=== PATIENT | male | born 1945 | race Caucasian/White ===

== ENCOUNTER 2018-12-26 12:53 | Outpatient (CLI) | payer MEDICARE ==
--- NOTE | 2018-12-26 13:37 | XRAY Report ---
Reason: LEFT KNEE INJURY Procedure Date: 12/26/2018 Accession Number: [id number] / [id number] Procedure: XR - Knee 3 View LT CPT Code: FULL RESULT: EXAM: LEFT KNEE RADIOGRAPHY EXAM DATE: 12/26/2018 01:14 PM. CLINICAL HISTORY: Left knee injury. Jump from 7 foot bridge with knee pain when extended. COMPARISON: None. TECHNIQUE: 3 views. FINDINGS: Bones: Normal. No fractures or bone lesions. Joints: Mild tricompartmental osteoarthrosis without joint effusion or subluxation. Soft Tissues: Normal. No soft tissue swelling. IMPRESSION: No acute fracture or dislocation is identified. RADIA
== END 2018-12-26 12:54 | disposition home or self-care (01) ==
LOC: DI 12:53
PROVIDERS: ATTEND Internal Medicine
DX: S89.92XA Unspecified injury of left lower leg, initial encounter (principal)

== ENCOUNTER 2020-03-17 08:19 | Outpatient (CLI) | payer MEDICARE, OTHER ==
[2020-03-17 08:52] LABS: ALBUMIN 4.4 g/dL (3.2-5.5); ALBUMIN/GLOBULIN RATIO 1.5 (1.0-2.2); ALKALINE PHOSPHATASE 56 IU/L (42-121); ALT ALANINE AMINOTRANSFERASE 29 IU/L (10-60); AST ASPARTATE AMINOTRANSFERASE 28 IU/L (10-42); BILIRUBIN,TOTAL 1.2 mg/dL (0.2-1.0); BUN - BLOOD UREA NITROGEN 18 mg/dL (6-20); CALCIUM 9.7 mg/dL (8.5-10.3); CARBON DIOXIDE - CO2 29 mmol/L (21-32); CHLORIDE 95 mmol/L (101-111); CHOL/HDL RATIO 2.5 (<5.0); CHOLESTEROL 131 mg/dL; CREATININE 0.9 mg/dL (0.6-1.2); GLUCOSE 135 mg/dL (70-100); HDL CHOLESTEROL 52 mg/dL; LDL CHOLESTEROL,CALCULATED 68 mg/dL; LDL/HDL RATIO 1.3 (<3.6); SODIUM 135 mmol/L (135-145); TOTAL PROTEIN 7.4 g/dL (6.7-8.2); VLDL CHOLESTEROL 11 mg/dL
== END 2020-03-17 08:20 | disposition home or self-care (01) ==
LOC: LAB 08:19
PROVIDERS: ATTEND Internal Medicine
DX: I10 Essential (primary) hypertension (principal); E78.5 Hyperlipidemia, unspecified; Z12.5 Encounter for screening for malignant neoplasm of prostate
CPT/HCPCS: 36415; 80053; 80061; G0103; 83721; 84153

== ENCOUNTER 2022-03-11 09:12 | Outpatient (CLI) | payer MEDICARE, OTHER ==
--- NOTE | 2022-03-11 11:21 | XRAY Report ---
PROCEDURE: Chest 2 View X-Ray INDICATIONS: DYSPNEA, SOB,PSVT TECHNIQUE: 2 views of the chest were obtained. COMPARISON: None. FINDINGS: Heart is mildly enlarged. No effusions, consolidations or pneumothorax. Osseous and soft tissue struc tures are unremarkable. IMPRESSION: No acute pulmonary process. Reviewed by: Alannah Mares MD on 03/11/2022 11:19 AM PDT Approved by: Alannah Mares MD on 03/11/2022 11:19 AM PDT Station ID: [id number]
== END 2022-03-11 09:13 | disposition home or self-care (01) ==
LOC: DI 09:12
PROVIDERS: ATTEND Internal Medicine Cardiovascular Disease
DX: R06.09 Other forms of dyspnea (principal); I47.1 Supraventricular tachycardia; R06.02 Shortness of breath

== ENCOUNTER 2022-05-14 10:35 | Outpatient (CLI) | payer MEDICARE, OTHER ==
[2022-05-14 11:14] LABS: ALBUMIN 4.5 g/dL (3.2-5.5); ALBUMIN/GLOBULIN RATIO 1.5 (1.0-2.2); ALKALINE PHOSPHATASE 55 IU/L (42-121); ALT ALANINE AMINOTRANSFERASE 21 IU/L (10-60); AST ASPARTATE AMINOTRANSFERASE 23 IU/L (10-42); BILIRUBIN,TOTAL 1.2 mg/dL (0.2-1.0); BUN - BLOOD UREA NITROGEN 35 mg/dL (6-20); CALCIUM 9.4 mg/dL (8.5-10.3); CARBON DIOXIDE - CO2 28 mmol/L (21-32); CHLORIDE 103 mmol/L (101-111); CHOL/HDL RATIO 3.8 (<5.0); CHOLESTEROL 132 mg/dL; CREATININE 1.1 mg/dL (0.6-1.2); GFR - MDRD 65 (>89); GLUCOSE 112 mg/dL (70-100); HDL CHOLESTEROL 35 mg/dL; LDL CHOLESTEROL,CALCULATED 78 mg/dL; LDL/HDL RATIO 2.2 (<3.6); POTASSIUM 3.9 mmol/L (3.5-5.0); SODIUM 138 mmol/L (135-145); TOTAL PROTEIN 7.5 g/dL (6.7-8.2); TRIGLYCERIDES 95 mg/dL; VLDL CHOLESTEROL 19 mg/dL
[2022-05-14 11:40] LABS: PSA FREE 0.37 ng/mL (0.16-2.81)
[2022-05-14 11:41] LABS: PSA TOTAL 1.93 ng/mL (0.000-2.000)
[2022-05-14 11:53] LABS: ESTIMATED AVERAGE GLUCOSE 128 mg/dL (70-100); HEMOGLOBIN A1c% 6.1 % (4.27-6.07)
== END 2022-05-14 10:36 | disposition home or self-care (01) ==
LOC: LAB 10:35
PROVIDERS: ATTEND Internal Medicine
DX: I10 Essential (primary) hypertension (principal); R73.01 Impaired fasting glucose; E78.5 Hyperlipidemia, unspecified; N40.0 Benign prostatic hyperplasia without lower urinary tract symptoms
CPT/HCPCS: 36415; 80053; 80061; 83036; 83721; 84153; 84154

== ENCOUNTER 2022-08-06 08:23 | Outpatient (CLI) | payer MEDICARE, OTHER ==
[2022-08-06 08:40] LABS: BASOPHILS # (AUTO) 0.1 10^3/uL (0.0-0.1); BASOPHILS % (AUTO) 0.7 %; EOSINOPHILS # (AUTO) 0.2 10^3/uL (0.0-0.7); EOSINOPHILS % (AUTO) 3.1 %; HCT - HEMATOCRIT 38.4 % (42.0-52.0); LYMPHOCYTES # (AUTO) 1.6 10^3/uL (1.5-3.5); LYMPHOCYTES % (AUTO) 21.1 %; MEAN CORPUSCULAR HGB CONC 33.9 g/dL (32.0-36.0); MEAN CORPUSCULAR VOLUME 94.6 fL (80.0-94.0); MEAN PLATELET VOLUME 8.4 fL (7.4-11.4); MONOCYTES # (AUTO) 0.8 10^3/uL (0.0-1.0); MONOCYTES % (AUTO) 10.6 %; NEUTROPHILS # (AUTO) 4.8 10^3/uL (1.5-6.6); NEUTROPHILS % (AUTO) 63.7 %; PLT - PLATELET COUNT 246 10^3/uL (130-450); RED BLOOD COUNT 4.06 10^6/uL (4.70-6.10); RED CELL DISTRIBUTION WIDTH 12.4 % (12.0-15.0); WHITE BLOOD COUNT 7.5 x10^3/uL (4.8-10.8)
[2022-08-06 08:51] LABS: BILIRUBIN,URINE NEGATIVE (NEGATIVE); GLUCOSE, URINE (UA) NEGATIVE (NEGATIVE); KETONES,URINE (UA) NEGATIVE (NEGATIVE); LEUKOCYTE ESTERASE, URINE NEGATIVE (NEGATIVE); NITRITE,URINE NEGATIVE (NEGATIVE); OCCULT BLOOD,URINE NEGATIVE (NEGATIVE); PROTEIN,URINE NEGATIVE (NEGATIVE); UROBILINOGEN,URINE 0.2 (NORMAL) E.U./dL (NORMAL)
[2022-08-06 08:52] LABS: CLARITY,URINE CLEAR (CLEAR)
[2022-08-06 08:59] LABS: ALBUMIN 4.3 g/dL (3.2-5.5); ALBUMIN/GLOBULIN RATIO 1.4 (1.0-2.2); ALKALINE PHOSPHATASE 62 IU/L (42-121); ALT ALANINE AMINOTRANSFERASE 24 IU/L (10-60); AST ASPARTATE AMINOTRANSFERASE 20 IU/L (10-42); BILIRUBIN,TOTAL 1.3 mg/dL (0.2-1.0); BUN - BLOOD UREA NITROGEN 39 mg/dL (6-20); CALCIUM 9.5 mg/dL (8.5-10.3); CARBON DIOXIDE - CO2 28 mmol/L (21-32); CHLORIDE 99 mmol/L (101-111); CHOL/HDL RATIO 4.1 (<5.0); CHOLESTEROL 124 mg/dL; CREATININE 1.3 mg/dL (0.6-1.2); GFR - MDRD 53 (>89); GLUCOSE 123 mg/dL (70-100); HDL CHOLESTEROL 30 mg/dL; LDL CHOLESTEROL,CALCULATED 77 mg/dL; LDL/HDL RATIO 2.6 (<3.6); POTASSIUM 3.6 mmol/L (3.5-5.0); SODIUM 135 mmol/L (135-145); TOTAL PROTEIN 7.3 g/dL (6.7-8.2); TRIGLYCERIDES 85 mg/dL; VLDL CHOLESTEROL 17 mg/dL
[2022-08-06 09:01] LABS: MICROALBUM/CREATININE RATIO,UR 5.3 ug/mg (<30.0); MICROALBUMIN,URINE 0.6 mg/dL (0-300.0)
[2022-08-06 09:11] LABS: THYROID STIMULATING HORMONE 2.74 uIU/mL (0.34-5.60)
[2022-08-06 09:13] LABS: FREE T4 (FREE THYROXINE) 1.03 ng/dL (0.58-1.64)
== END 2022-08-06 08:24 | disposition home or self-care (01) ==
LOC: LAB 08:23
PROVIDERS: ATTEND Physician Assistant Medical
DX: I10 Essential (primary) hypertension (principal); E78.5 Hyperlipidemia, unspecified
CPT/HCPCS: 36415; 80053; 80061; 81001; 81003; 81599; 82043; 82384; 82570; 83721; 83835; 84439; 84443; 85025; 87086

== ENCOUNTER 2022-08-10 08:12 | Outpatient (CLI) | payer MEDICARE, OTHER ==
[2022-08-10] MEDS ORDERED: iohexoL-300 100 ML VIAL ONE ×2 (08:19→08:25)
--- NOTE | 2022-08-10 09:28 | CT Report ---
PROCEDURE: ANGIO ABDOMEN W/WO INDICATIONS: REFRACTORY HTN TECHNIQUE: Noncontrast CT of the abdomen is performed, followed by intravenous contrast-enhanced brown rial phase and delayed venous phase images of the abdomen. COMPARISON: None. FINDINGS: Calcified granuloma within the left posterior lung base. Heart size is within normal limits. There is moderate diffuse plaque causing mild diffuse stenosis of the abdominal aorta. No evidence of dissection, nor aneurysm. Single bilateral renal arteries are present. There is a moderate calcific origin stenosis of the left renal artery origin. There is a high-grade calcific origin stenosis of th e right renal artery origin. High-grade calcific origin stenosis of the celiac artery. Superior mesen teric artery is patent. Inferior mesenteric artery demonstrates a mild calcific origin stenosis. Liver, biliary tree, gallbladder, pancreas, spleen, adrenals, and kidneys are within normal limits. Visualized bowel loops and mesentery are grossly unremarkable. No adenopathy. IVC and portal venous vasculature are grossly patent. Grade 1 anterolisthesis of L4 on L5. Bilateral L4-L5 pars intraarticularis defects. Severe discogenic osteosclerosis within the inferior L4 and superior L5 endplates. IMPRESSION: 1. Bilateral renal artery stenoses as described above. 2. Mesenteric arterial stenoses as described above. 3. 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 Reviewed by: Radha Sarabia MD on 08/10/2022 9:27 AM PDT Approved by: Radha Sarabia MD on 08/10/2022 9:27 AM PDT Station ID: [id number]
[2022-08-10] MEDS ORDERED: iohexoL-300 100 ML VIAL IVP ONE (14:07)
== END 2022-08-10 08:13 | disposition home or self-care (01) ==
LOC: DI 08:12
PROVIDERS: ATTEND Physician Assistant Medical
DX: I10 Essential (primary) hypertension (principal); I70.1 Atherosclerosis of renal artery; K55.1 Chronic vascular disorders of intestine; M47.896 Other spondylosis, lumbar region
CPT/HCPCS: 74175; Q9967

== ENCOUNTER 2022-09-01 16:08 | Outpatient (CLI) | payer MEDICARE, OTHER ==
[2022-09-01 16:31] LABS: CALCIUM 9.6 mg/dL (8.5-10.3); CREATININE 1.4 mg/dL (0.6-1.2); POTASSIUM 3.5 mmol/L (3.5-5.0)
== END 2022-09-01 16:09 | disposition home or self-care (01) ==
LOC: LAB 16:08
PROVIDERS: ATTEND Internal Medicine Cardiovascular Disease
DX: I10 Essential (primary) hypertension (principal)
CPT/HCPCS: 36415; 80048

== ENCOUNTER 2022-10-26 08:17 | Outpatient (CLI) | payer MEDICARE, OTHER ==
[2022-10-26 08:54] LABS: ALBUMIN 4.1 g/dL (3.2-5.5); CALCIUM 9.4 mg/dL (8.5-10.3); PHOSPHORUS 3.7 mg/dL (2.5-4.6); POTASSIUM 3.8 mmol/L (3.5-5.0)
[2022-10-26 09:12] LABS: CREATININE,URINE 97.7 mg/dL; PROTEIN/CREATININE RATIO,URINE 0.1 (<=0.2)
== END 2022-10-26 08:18 | disposition home or self-care (01) ==
LOC: LAB 08:17
PROVIDERS: ATTEND Internal Medicine Nephrology
DX: N18.2 Chronic kidney disease, stage 2 (mild) (principal); I15.0 Renovascular hypertension
CPT/HCPCS: 36415; 80069; 82570; 84156

== ENCOUNTER 2022-11-22 08:04 | Outpatient (CLI) | payer MEDICARE, OTHER ==
[2022-11-22 08:32] LABS: CREATININE,URINE 128.1 mg/dL; PROTEIN/CREATININE RATIO,URINE 0.1 (<=0.2)
[2022-11-22 08:33] LABS: ALBUMIN 4.1 g/dL (3.2-5.5); CALCIUM 9.5 mg/dL (8.5-10.3); CREATININE 2.1 mg/dL (0.6-1.2); PHOSPHORUS 4.1 mg/dL (2.5-4.6); POTASSIUM 3.4 mmol/L (3.5-5.0)
== END 2022-11-22 08:05 | disposition home or self-care (01) ==
LOC: LAB 08:04
PROVIDERS: ATTEND Internal Medicine Nephrology
DX: I15.0 Renovascular hypertension (principal); N18.2 Chronic kidney disease, stage 2 (mild)
CPT/HCPCS: 36415; 80069; 82570; 84156

== ENCOUNTER 2022-12-01 09:42 | Outpatient (CLI) | payer MEDICARE, OTHER ==
[2022-12-01 10:12] LABS: CREATININE,URINE 116.1 mg/dL; PROTEIN/CREATININE RATIO,URINE 0.1 (<=0.2)
[2022-12-01 10:32] LABS: ALBUMIN 3.8 g/dL (3.2-5.5); PHOSPHORUS 2.4 mg/dL (2.5-4.6); POTASSIUM 3.7 mmol/L (3.5-5.0)
== END 2022-12-01 09:43 | disposition home or self-care (01) ==
LOC: LAB 09:42
PROVIDERS: ATTEND Internal Medicine Nephrology
DX: N18.2 Chronic kidney disease, stage 2 (mild) (principal); I15.0 Renovascular hypertension
CPT/HCPCS: 36415; 80069; 82570; 84156

== ENCOUNTER 2022-12-27 07:54 | Outpatient (CLI) | payer MEDICARE, OTHER ==
[2022-12-27 08:17] LABS: BILIRUBIN,URINE NEGATIVE (NEGATIVE); GLUCOSE, URINE (UA) NEGATIVE (NEGATIVE); KETONES,URINE (UA) NEGATIVE (NEGATIVE); LEUKOCYTE ESTERASE, URINE NEGATIVE (NEGATIVE); NITRITE,URINE NEGATIVE (NEGATIVE); OCCULT BLOOD,URINE NEGATIVE (NEGATIVE); PH,URINE 6.5 PH (5.0-7.5); PROTEIN,URINE NEGATIVE (NEGATIVE); UROBILINOGEN,URINE 0.2 (NORMAL) E.U./dL (NORMAL)
[2022-12-27 08:25] LABS: ALBUMIN 4.2 g/dL (3.2-5.5); CALCIUM 9.6 mg/dL (8.5-10.3); PHOSPHORUS 2.5 mg/dL (3.7-7.2); POTASSIUM 3.9 mmol/L (3.5-4.5)
[2022-12-27 08:27] LABS: CLARITY,URINE CLEAR (CLEAR); CREATININE,URINE 124.4 mg/dL; PROTEIN/CREATININE RATIO,URINE 0.1 (<=0.2)
[2022-12-27 08:28] LABS: BACTERIA,URINE None Seen /HPF (None Seen); RBC,URINE None Seen /HPF (0-5); SQUAMOUS EPITHELIAL CELL,UR NONE SEEN (<= Few); WBC,URINE 0-3 /HPF (0-3)
== END 2022-12-27 07:55 | disposition home or self-care (01) ==
LOC: LAB 07:54
PROVIDERS: ATTEND Internal Medicine Nephrology
DX: N17.9 Acute kidney failure, unspecified (principal)
CPT/HCPCS: 36415; 80069; 81001; 82570; 84156; 87086

== ENCOUNTER 2023-01-13 21:37 | Emergency (ER) | payer MEDICARE, OTHER ==
--- OUTSIDE RECORDS SUMMARY | 2023-01-13 22:02 | EXTERNAL MEDICAL SUMMARY RPT | Continuity of Care Document ---
Author Name Unknown Address [address] [place] [address] Phone Organization [facility] Address [address] [place] [address] Phone Care Team Providers Care Globe Changer Name Role Phone Unavailable Unavailable Unavailable Rex Campa Pa-[facility] Unavailable Unavailable Medications date description facility 2023-01-12 00:00 hydralazine All 2023-01-13 00:00 hydralazine All 2023-01-12 00:00 aspirin All 2023-01-13 00:00 aspirin All 2023-01-12 00:00 aspirin All 2023-01-13 00:00 aspirin All 2023-01-12 00:00 hydralazine All 2023-01-13 00:00 hydralazine All 2023-01-12 00:00 atorvastatin All 2023-01-13 00:00 atorvastatin All 2023-01-12 00:00 atorvastatin All 2023-01-13 00:00 atorvastatin All 2023-01-12 00:00 hydralazine All 2023-01-13 00:00 hydralazine All 2023-01-12 00:00 atorvastatin All 2023-01-13 00:00 atorvastatin All 2023-01-12 00:00 atorvastatin All 2023-01-13 00:00 atorvastatin All 2023-01-12 00:00 aspirin All 2023-01-13 00:00 aspirin All 2023-01-12 00:00 hydralazine All 2023-01-13 00:00 hydralazine All Problems date description facility 2023-01-12 00:00 Unspecified essential hypertens ion All 2023-01-12 00:00 Essential hypertension All 2023-01-12 00:00 Essential (primary) hypertensio n All Procedures date description facility 2023-01-12 00:00 Visit Code Hold All Social History date description facility 2023-01-12 00:00 Unknown if ever smoked All 2023-01-13 00:00 Unknown if ever smoked All Vital Signs date measurement value units 2023-01-12 00:00 BMI 26.03 kg/m2 2023-01-12 00:00 BP_diastolic 77 mmHg 2023-01-12 00:00 BP_systolic 152 mmHg 2023-01-12 00:00 heart_rate 95 /min 2023-01-12 00:00 height_metric 187.96 cm 2023-01-12 00:00 height_standard 74 in 2023-01-12 00:00 respiration_rate 16 /min 2023-01-12 00:00 temperature_metric 37.17 C 2023-01-12 00:00 temperature_standard 98.9 F 2023-01-12 00:00 weight_metric 91.63 kg 2023-01-12 00:00 weight_standard 202 lb
--- NOTE | 2023-01-13 22:04 | ED Physician Documentation ---
PD HPI CHEST PAIN - Stated complaint Stated Complaint: TIGHT CHEST - Chief complaint Chief Complaint: Cardiac - History obtained from History obtained from: Patient - Additional information Additional information: 77yM with pmh cad, stent September 07, 2022 p/w chest tightness earlier today and new chest pain now with associated dizziness. stopped plavix september 07. denies soa, fever, nausea. Review of Systems Constitutional: denies: Fever, Chills Cardiac: reports: Palpitations. denies: Chest pain / pressure Respiratory: denies: Dyspnea, Cough Neurologic: reports: Other (dizziness) PD PAST MEDICAL HISTORY - Past Medical History Cardiovascular: Hypertension, High cholesterol Respiratory: None, Tuberculosis Neuro: None Endocrine/Autoimmune: None GI: Other : Other HEENT: None Psych: None Musculoskeletal: None Other Past Medical History: renal stent. hernia repair - Past Surgical History Past Surgical History: Yes General: Hiatal hernia repair HEENT: Cataracts - Present Medications Home Medications: Ambulatory Orders Medication Instructions Recorded Confirmed Zolpidem [Ambien] 5 mg PO HS 01/13/23 amLODIPine [Norvasc] 10 mg PO DAILY 01/13/23 hydrALAZINE [Apresoline] 25 mg PO TID 01/13/23 01/13/23 - Allergies Allergies/Adverse Reactions: Allergies Allergy/AdvReac Type Severity Reaction Status Date / Time No Known Drug Allergies Allergy Verified 01/13/23 21:51 - Social History Does the pt smoke?: No Smoking Status: Never smoker Does the pt drink ETOH?: Yes Does the pt have substance abuse?: No - Immunizations Immunizations are current?: Yes PD ED PE NORMAL - Vitals Vital signs reviewed: Yes - General General: Alert and oriented X 3, No acute distress, Well developed/nourished - HEENT HEENT: Atraumatic, PERRL, EOMI, Moist mucous membranes, Pharynx benign - Neck Neck: Supple, no meningeal sign - Cardiac Cardiac: Other (irregular rate, mildly tachycardic rhythm) - Respiratory Respiratory: No respiratory distress, Clear bilaterally - Abdomen Abdomen: Non tender, Non distended - Derm Derm: Normal color, Warm and dry - Extremities Extremities: No deformity, No edema - Neuro Neuro: No motor deficit, No sensory deficit - Psych Psych: Normal mood, Normal affect Results - Vitals Vitals: Vital Signs - 24 hr 01/13/23 01/13/2323 21:42 22:21 23:51 Temperature 36.8 C Heart Rate 117 H 96 94 Respiratory 18 24 17 Rate Blood Pressure 147/59 H 117/69 111/66 O2 Saturation 96 98 98 01/14/23 01/14/23 00:22 00:52 Temperature Heart Rate 100 104 H Respiratory 16 17 Rate Blood Pressure 130/66 118/60 O2 Saturation 97 95 Oxygen O2 Source Room air - EKG (time done) 2144 EKG releavant findings:: EKG personally interpreted by author of this note. Relevant findings are: Rate: Rate (enter#) (112) Rhythm: Atrial fibrillation 0151 EKG releavant findings:: EKG personally interpreted by author of this note. Relevant findings are: Rate: Rate (enter#) (82) Rhythm: NSR [place]: Normal Intervals: Prolonged PA (231), Other (QT/QTc 420/491) QRS: Normal Ischemia: Normal ST segments - Labs Labs: Laboratory Tests 01/13/23 01/13/23 22:11 22:11 WBC 7.4 RBC 4.13 L Hgb 13.3 L Hct 38.6 L MCV 93.5 MCH 32.2 H MCHC 34.5 RDW 13.1 Plt Count 229 MPV 9.1 Neut # (Auto) 4.8 Lymph # (Auto) 1.6 [place] # (Auto) 0.8 Eos # (Auto) 0.2 Baso # (Auto) 0.0 Absolute Nucleated RBC 0.00 Nucleated RBC % 0.0 Sodium 134 L Potassium 3.0 L Chloride 99 L Carbon Dioxide 23 Anion Gap 12.0 BUN 16 Creatinine 1.0 Estimated GFR (MDRD) 72 L Glucose 143 H Calcium 9.6 Magnesium 1.8 Total Bilirubin 1.1 H AST 26 ALT 20 Alkaline Phosphatase 61 Troponin I High Sens 5.0 Total Protein 7.5 Albumin 4.6 Globulin 2.9 Albumin/Globulin Ratio 1.6 Lipase 22 PD Medical Decision Making - ED course ED course: 77yM with pmh cad p/w new onset afib in the ED on EKG. 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 I offered procainamide medical cardioversion and patient declined. he then changed his mind and agreed to it and it was reordered. cbc, abdominal panel, troponin ordered and unremarkable aside from hypokalemia with K 3.0. repleted orally and IV potassium. also with mild hyponatremia. advised to f/u with pcp regarding this. Patient converted to NSR following 1g procainamide infusion. Plan to f/u outpatient cardiology. return precautions given. Departure - Departure Disposition: Home, Self Care Clinical Impression: Hypokalemia, New onset a-fib Condition: Stable Instructions: Atrial Fibrillation Dc, ED Potassium Deficiency Follow-Up: Domingo Valdez MD [Physician No Access] - Comments: You were seen in the emergency department for New onset atrial fibrillation, which resolved after procainamide infusion. You also had low potassium that improved after potassium supplement was given. You should talk with your primary care provider about starting potassium supplementation or transitioning to a different blood pressure medicine. In regards to the afib, this resolved after 1 gram of procainamide was infused over an hour. You are now back in a normal heart rhythm. Please follow-up with a watch crystal edge grinder and return to the emergency department if you have any new or worsening symptoms or other concerns. Forms: PCP List
--- NOTE | 2023-01-13 22:19 | XRAY Report ---
PROCEDURE: Chest 1 View X-Ray INDICATIONS: Chest Pain TECHNIQUE: One view of the chest was acquired. COMPARISON: None. FINDINGS: Surgical changes and devices: None. Lungs and pleura: No pleural effusions or pneumothorax. Lungs are clear. Mediastinum: Mediastinal contours appear normal. Heart size is normal. Bones and chest wall: No suspicious bony lesions. Overlying soft tissues appear unremarkable. IMPRESSION: No acute cardiopulmonary process. Reviewed by: Francisca Schultz MD on 01/13/2023 10:18 PM PDT Approved by: Francisca Schultz MD on 01/13/2023 10:18 PM PDT Station ID: [id number]
[2023-01-13 22:22] LABS: BASOPHILS % (AUTO) 0.3 %; EOSINOPHILS # (AUTO) 0.2 10^3/uL (0.0-0.7); EOSINOPHILS % (AUTO) 2.3 %; HCT - HEMATOCRIT 38.6 % (42.0-52.0); HGB - HEMOGLOBIN 13.3 g/dL (14.0-18.0); LYMPHOCYTES # (AUTO) 1.6 10^3/uL (1.5-3.5); LYMPHOCYTES % (AUTO) 21.8 %; MEAN CORPUSCULAR HEMOGLOBIN 32.2 pg (27.0-31.0); MEAN CORPUSCULAR HGB CONC 34.5 g/dL (32.0-36.0); MEAN CORPUSCULAR VOLUME 93.5 fL (80.0-94.0); MEAN PLATELET VOLUME 9.1 fL (7.4-11.4); MONOCYTES # (AUTO) 0.8 10^3/uL (0.0-1.0); MONOCYTES % (AUTO) 10.9 %; NEUTROPHILS # (AUTO) 4.8 10^3/uL (1.5-6.6); NEUTROPHILS % (AUTO) 64.4 %; PLT - PLATELET COUNT 229 10^3/uL (130-450); RED BLOOD COUNT 4.13 10^6/uL (4.70-6.10); RED CELL DISTRIBUTION WIDTH 13.1 % (12.0-15.0); WHITE BLOOD COUNT 7.4 x10^3/uL (4.8-10.8)
[2023-01-13 22:37] LABS: ALBUMIN 4.6 g/dL (3.2-5.5); ALBUMIN/GLOBULIN RATIO 1.6 (1.0-2.2); BILIRUBIN,TOTAL 1.1 mg/dL (0.2-1.0); CALCIUM 9.6 mg/dL (8.5-10.3); MAGNESIUM 1.8 mg/dL (1.7-2.8); TOTAL PROTEIN 7.5 g/dL (6.7-8.2)
[2023-01-13] MEDS ORDERED: PROCAINAMIDE 1,000 MG in SODIUM CHLORIDE 0.9% 240 ML IV SCH (23:00)
[2023-01-13] MEDS ORDERED: POTASSIUM CHLORIDE 20 MEQ/15 ML UDC PO STA (23:13)
[2023-01-13] MEDS ORDERED: POTASSIUM CHLOR 10 MEQ/100 ML 10 MEQ/100 ML BAG IV ONE (23:13)
[2023-01-13] MEDS ORDERED: PROCAINAMIDE 1,000 MG in SODIUM CHLORIDE 0.9% 240 ML IV STA (23:42)
[2023-01-14] MEDS ORDERED: PROCAINAMIDE 1,000 MG/10 ML SYRINGE ONE ×2 (00:11→00:16)
[2023-01-14] MEDS ORDERED: PROPOFOL 200 MG/20 ML VIAL IVP STA (01:12)
[2023-01-14 02:15] VITALS: BP 122/70; O2SAT 98
== END 2023-01-14 02:13 | disposition home or self-care (01) ==
LOC: ED 21:37
DX: I48.91 Unspecified atrial fibrillation (principal); E87.6 Hypokalemia; I10 Essential (primary) hypertension
CPT/HCPCS: 36415; 71045; 80053; 83690; 83735; 84484; 85025; 93005; 96365; 96366; 96368; 99284; 99285; A9270; J2690

== ENCOUNTER 2023-01-25 20:22 | Outpatient (CLI) | payer MEDICARE, OTHER ==
--- NOTE | 2023-01-26 12:32 | Ultrasound Report ---
PROCEDURE: Arterial Visceral Complete INDICATIONS: Renal artery stenosis status post stent placement. Evaluate for stent patency. TECHNIQUE: Real time scanning was performed of both kidneys, followed by Color and pulsed Doppler in terrogation of the renal vessels. COMPARISON: None FINDINGS: Aortic peak systolic velocity: 96.9 cm/s. Right side: Escalera-scale imaging: Kidney is 11.0 cm long. No hydronephrosis. No nephrolithiasis. Renal cortex is normal in echogenicity. No suspicious solid renal masses. Proximal renal artery peak systolic velocity: 83.0 cm/s. Mid renal artery peak systolic velocity: 91.3 cm/s. Distal renal artery peak systolic velocity: 54.8 cm/s. Renal vein: Patent, without thrombus. Peak renal/aortic ratio (RAR): 0.94. Left side: Escalera-scale imaging: Kidney is 10.7 cm long. No hydronephrosis. No nephrolithiasis. Renal cortex is normal in echogenicity. No suspicious solid renal masses. Proximal renal artery peak systolic velocity: 106.7 cm/s. Mid-renal artery peak systolic velocity: 125.3 cm/s. Distal renal artery peak systolic velocity: 42.6 cm/s. Renal vein: Patent, without thrombus. Peak renal/aortic ratio (RAR): 1.29. IMPRESSION: 1.The exam is markedly limited due to increased bowel gas with suboptimal visualization. The right re nal stent was not well visualized due to obscuration by overlying bowel gas. However distal to the st ent the renal arteries demonstrate normal velocities and waveforms indicating patency. 2. Normal left kidney. Reviewed by: Slick García on 01/26/2023 12:31 PM PDT Approved by: Slick García on 01/26/2023 12:31 PM PDT Station ID: [id number]
== END 2023-01-25 20:23 | disposition home or self-care (01) ==
LOC: DI 20:22
PROVIDERS: ATTEND Internal Medicine Nephrology
DX: I70.1 Atherosclerosis of renal artery (principal); N17.9 Acute kidney failure, unspecified
CPT/HCPCS: 36415; 80069; 81001; 82570; 84156; 87086; 93975

== ENCOUNTER 2023-01-25 20:27 | Outpatient (CLI) | payer MEDICARE, OTHER ==
[2023-01-25 20:55] LABS: ALBUMIN 4.2 g/dL (3.2-5.5); CALCIUM 9.1 mg/dL (8.5-10.3); PHOSPHORUS 2.7 mg/dL (2.5-4.6); POTASSIUM 3.7 mmol/L (3.5-5.0)
== END 2023-01-25 20:28 | disposition home or self-care (01) ==
LOC: LAB 20:27
PROVIDERS: ATTEND Internal Medicine Nephrology
DX: N17.9 Acute kidney failure, unspecified (principal)
CPT/HCPCS: 36415; 80069; 81001; 82570; 84156; 87086

== ENCOUNTER 2023-03-24 07:34 | Outpatient (CLI) | payer MEDICARE, OTHER ==
[2023-03-24 08:00] LABS: ALBUMIN 4.3 g/dL (3.2-5.5); CALCIUM 9.8 mg/dL (8.5-10.3); PHOSPHORUS 3.5 mg/dL (2.5-5.0); POTASSIUM 3.8 mmol/L (3.5-4.5)
== END 2023-03-24 07:35 | disposition home or self-care (01) ==
LOC: LAB 07:34
PROVIDERS: ATTEND Internal Medicine Nephrology
DX: N17.9 Acute kidney failure, unspecified (principal)
CPT/HCPCS: 36415; 80069; 81001; 82570; 84156; 87086

== ENCOUNTER 2023-05-17 08:17 | Outpatient (CLI) | payer MEDICARE, OTHER ==
[2023-05-17 08:47] LABS: ALBUMIN 4.1 g/dL (3.2-5.5); CALCIUM 9.5 mg/dL (8.5-10.3); CREATININE 1.2 mg/dL (0.6-1.3); PHOSPHORUS 3.2 mg/dL (2.5-5.0); POTASSIUM 4.1 mmol/L (3.5-4.5)
[2023-05-17 08:51] LABS: PROTEIN/CREATININE RATIO,URINE 0.1 (<=0.2)
== END 2023-05-17 08:18 | disposition home or self-care (01) ==
LOC: LAB 08:17
PROVIDERS: ATTEND Internal Medicine Nephrology
DX: I15.0 Renovascular hypertension (principal)
CPT/HCPCS: 36415; 80069; 82570; 84156

== ENCOUNTER 2023-06-08 16:19 | Emergency (ER) | payer MEDICARE, OTHER ==
[2023-06-08 16:43] VITALS: BP 124/51; O2SAT 98
== END 2023-06-08 16:40 | disposition left against medical advice (07) ==
LOC: ED 16:19
DX: Z53.21 Procedure and treatment not carried out due to patient leaving prior to being seen by health care provider (principal)
CPT/HCPCS: 93005

== ENCOUNTER 2023-06-22 12:47 | Outpatient (CLI) | payer MEDICARE, OTHER ==
[2023-06-22 13:24] LABS: ALBUMIN 4.4 g/dL (3.2-5.5); CALCIUM 9.9 mg/dL (8.5-10.3); CREATININE 1.2 mg/dL (0.6-1.3); PHOSPHORUS 2.6 mg/dL (2.5-5.0); POTASSIUM 4.1 mmol/L (3.5-4.5)
== END 2023-06-22 12:48 | disposition home or self-care (01) ==
LOC: LAB 12:47
PROVIDERS: ATTEND Internal Medicine Nephrology
DX: N17.9 Acute kidney failure, unspecified (principal)
CPT/HCPCS: 36415; 80069; 81001; 82570; 84156; 87086

== ENCOUNTER 2023-08-18 08:19 | Outpatient (CLI) | payer MEDICARE, OTHER ==
[2023-08-18 08:59] LABS: ALBUMIN 4.3 g/dL (3.2-5.5); ALBUMIN/GLOBULIN RATIO 1.7 (1.0-2.2); BILIRUBIN,TOTAL 0.5 mg/dL (0.2-1.0); CALCIUM 10.2 mg/dL (8.5-10.3); CREATININE 1.1 mg/dL (0.6-1.3); POTASSIUM 3.9 mmol/L (3.5-4.5); TOTAL PROTEIN 6.9 g/dL (6.4-8.9)
[2023-08-18 09:14] LABS: THYROID STIMULATING HORMONE 2.62 uIU/mL (0.34-5.60)
[2023-08-18 09:20] LABS: FERRITIN 120.8 ng/mL (23.9-336.2)
[2023-08-18 10:28] LABS: ESTIMATED AVERAGE GLUCOSE 123 mg/dL (70-100); HEMOGLOBIN A1c% 5.9 % (4.27-6.07)
== END 2023-08-18 08:20 | disposition home or self-care (01) ==
LOC: LAB 08:19
DX: R19.7 Diarrhea, unspecified (principal); R19.4 Change in bowel habit
CPT/HCPCS: 36415; 80053; 82728; 82784; 83036; 83540; 84443; 84466; 86231; 86364

== ENCOUNTER 2023-08-19 08:56 | Outpatient (CLI) | payer MEDICARE, OTHER ==
[2023-08-19 09:07] LABS: HCT - HEMATOCRIT 33.6 % (42.0-52.0); HGB - HEMOGLOBIN 11.8 g/dL (14.0-18.0); MEAN CORPUSCULAR HEMOGLOBIN 32.8 pg (27.0-31.0); MEAN CORPUSCULAR HGB CONC 35.1 g/dL (32.0-36.0); MEAN CORPUSCULAR VOLUME 93.3 fL (80.0-94.0); MEAN PLATELET VOLUME 8.9 fL (7.4-11.4); RED BLOOD COUNT 3.6 10^6/uL (4.70-6.10); RED CELL DISTRIBUTION WIDTH 12.5 % (12.0-15.0); WHITE BLOOD COUNT 6.4 x10^3/uL (4.8-10.8)
== END 2023-08-19 08:57 | disposition home or self-care (01) ==
LOC: LAB 08:56
DX: R19.7 Diarrhea, unspecified (principal); R19.4 Change in bowel habit
CPT/HCPCS: 36415; 85027

== ENCOUNTER 2023-08-22 08:00 | Outpatient (CLI) | payer MEDICARE, OTHER ==
[2023-08-23 07:09] LABS: ADENOVIRUS F 40/41 Not Detected (Not Detected); ASTROVIRUS Not Detected (Not Detected); C DIFFICILE TOXIN A/B Not Detected (Not Detected); CAMPYLOBACTER Not Detected (Not Detected); CRYPTOSPORIDIUM Not Detected (Not Detected); CYCLOSPORA CAYETANENSIS Not Detected (Not Detected); ENTAMOEBA HISTOLYTICA Not Detected (Not Detected); ENTEROAGGREGATIVE E COLI Not Detected (Not Detected); ENTEROPATHOGENIC E COLI Detected (Not Detected); ENTEROTOXIGENIC E COLI Not Detected (Not Detected); GIARDIA LAMBLIA Not Detected (Not Detected); NOROVIRUS GI/GII Detected (Not Detected); PLESIOMONAS SHIGELLOIDES Not Detected (Not Detected); ROTAVIRUS A Not Detected (Not Detected); SALMONELLA Not Detected (Not Detected); SAPOVIRUS Not Detected (Not Detected); SHIGA-TOXIN-PRODUCING E COLI Not Detected (Not Detected); SHIGELLA/ENTEROINVASIVE E COLI Not Detected (Not Detected); VIBRIO Not Detected (Not Detected); VIBRIO CHOLERAE Not Detected (Not Detected); YERSINIA ENTEROCOLITICA Not Detected (Not Detected)
== END 2023-08-22 23:59 | disposition home or self-care (01) ==
LOC: LAB.R 08:00
DX: R19.7 Diarrhea, unspecified (principal); R19.4 Change in bowel habit
CPT/HCPCS: 83993; 87329; 87507

== ENCOUNTER 2023-08-29 15:04 | Outpatient (CLI) | payer MEDICARE, OTHER ==
[2023-08-29 15:12] LABS: BASOPHILS % (AUTO) 0.1 %; EOSINOPHILS % (AUTO) 0.4 %; HCT - HEMATOCRIT 35.8 % (42.0-52.0); HGB - HEMOGLOBIN 12.7 g/dL (14.0-18.0); LYMPHOCYTES # (AUTO) 1.1 10^3/uL (1.5-3.5); LYMPHOCYTES % (AUTO) 13.4 %; MEAN CORPUSCULAR HEMOGLOBIN 31.9 pg (27.0-31.0); MEAN CORPUSCULAR HGB CONC 35.5 g/dL (32.0-36.0); MEAN CORPUSCULAR VOLUME 89.9 fL (80.0-94.0); MEAN PLATELET VOLUME 8.5 fL (7.4-11.4); MONOCYTES # (AUTO) 0.9 10^3/uL (0.0-1.0); NEUTROPHILS # (AUTO) 6.5 10^3/uL (1.5-6.6); NEUTROPHILS % (AUTO) 75.7 %; PLT - PLATELET COUNT 252 10^3/uL (130-450); RED BLOOD COUNT 3.98 10^6/uL (4.70-6.10); RED CELL DISTRIBUTION WIDTH 11.9 % (12.0-15.0); WHITE BLOOD COUNT 8.5 x10^3/uL (4.8-10.8)
== END 2023-08-29 15:05 | disposition home or self-care (01) ==
LOC: LAB 15:04
PROVIDERS: ATTEND Nurse Practitioner Acute Care
DX: D50.9 Iron deficiency anemia, unspecified (principal)
CPT/HCPCS: 36415; 85025

== ENCOUNTER 2023-09-07 08:00 | Outpatient (CLI) | payer MEDICARE, OTHER ==
[2023-09-07 08:28] LABS: ALBUMIN 4.2 g/dL (3.2-5.5); CALCIUM 10.3 mg/dL (8.5-10.3); CALCIUM 10.4 mg/dL (8.5-10.3); PHOSPHORUS 3.3 mg/dL (2.5-5.0); POTASSIUM 3.9 mmol/L (3.5-4.5)
== END 2023-09-07 08:01 | disposition home or self-care (01) ==
LOC: LAB 08:00
PROVIDERS: ATTEND Nurse Practitioner
DX: I47.10 Supraventricular tachycardia, unspecified (principal); I48.0 Paroxysmal atrial fibrillation; N17.9 Acute kidney failure, unspecified
CPT/HCPCS: 36415; 80048; 80069; 81001; 82570; 84156; 87086

== ENCOUNTER 2023-11-02 10:40 | Outpatient (CLI) | payer MEDICARE, OTHER ==
[2023-11-02 10:56] LABS: ABSOLUTE RETICS # AUTO 0.028 10^6/uL (0.020-0.110); HCT - HEMATOCRIT 33.3 % (42.0-52.0); HGB - HEMOGLOBIN 11.4 g/dL (14.0-18.0); MEAN CORPUSCULAR HGB CONC 34.2 g/dL (32.0-36.0); MEAN CORPUSCULAR VOLUME 93.5 fL (80.0-94.0); MEAN PLATELET VOLUME 8.9 fL (7.4-11.4); RED BLOOD COUNT 3.56 10^6/uL (4.70-6.10); RED CELL DISTRIBUTION WIDTH 12.4 % (12.0-15.0); RETICULOCYTE COUNT % (AUTO) 0.79 % (0.5-2.3); WHITE BLOOD COUNT 9.6 x10^3/uL (4.8-10.8)
[2023-11-02 11:18] LABS: BILIRUBIN,URINE NEGATIVE (NEGATIVE); GLUCOSE, URINE (UA) NEGATIVE (NEGATIVE); KETONES,URINE (UA) NEGATIVE (NEGATIVE); LEUKOCYTE ESTERASE, URINE NEGATIVE (NEGATIVE); NITRITE,URINE NEGATIVE (NEGATIVE); OCCULT BLOOD,URINE TRACE-LYSE (NEGATIVE); PROTEIN,URINE NEGATIVE (NEGATIVE); UROBILINOGEN,URINE 0.2 (NORMAL) E.U./dL (NORMAL)
[2023-11-02 11:28] LABS: BACTERIA,URINE Rare /HPF (None Seen); CLARITY,URINE CLEAR (CLEAR); RBC,URINE 0-5 /HPF (0-5); SQUAMOUS EPITHELIAL CELL,UR NONE SEEN (<= Few)
[2023-11-02 11:31] LABS: % IRON SATURATION 29 % (20-50); ALBUMIN 3.8 g/dL (3.2-5.5); IRON 75 ug/dL (50-212); LDL CHOLESTEROL,DIRECT 56 mg/dL (75-193); PHOSPHORUS 5.9 mg/dL (2.5-5.0); TOTAL IRON BINDING CAPACITY 262 ug/dL (250-450); TRANSFERRIN 187 mg/dL (203-362)
[2023-11-02 11:37] LABS: PROTEIN/CREATININE RATIO,URINE 0.3 (<=0.2)
[2023-11-02 11:41] LABS: CALCIUM 9.4 mg/dL (8.5-10.3); CREATININE 5.2 mg/dL (0.6-1.3); POTASSIUM 3.6 mmol/L (3.5-4.5)
== END 2023-11-02 10:41 | disposition home or self-care (01) ==
LOC: LAB 10:40
PROVIDERS: ATTEND Naturopath
DX: K21.00 Gastro-esophageal reflux disease with esophagitis, without bleeding (principal); D50.9 Iron deficiency anemia, unspecified; N17.9 Acute kidney failure, unspecified
CPT/HCPCS: 36415; 80069; 81001; 82570; 83540; 83721; 84156; 84466; 85027; 85045; 87086

== ENCOUNTER 2023-11-02 12:55 | Emergency (ER) | payer MEDICARE, OTHER ==
--- NOTE | 2023-11-02 13:52 | ED Physician Documentation ---
History of Present Illness - Stated complaint Stated Complaint: KIDNEY FAILURE - Chief complaint Chief Complaint: Abd Pain - Additonal information Additional information: 78-year-old male presents emergency department for concerns of abnormal lab values. He has history of right renal artery stenosis that was stented last month with Dr. evans with nephrology in [place]. Patient says he since then has had no major complications he was recently in [place] got back couple days ago he did take 3 Aleve in a 24-hour period which she notes that normally do but was having some back pain. He has been voiding adequately and drinking plenty of f luids no nausea vomiting no fevers or chills no flank pain. He says he has been feeling more tired but chalked this up to recent travel. He had outpatient labs done today as he has labs done monthly for his kidney failure and was told to come to the nearest emergency department because his BUN is found to be 92. PD PAST MEDICAL HISTORY - Past Medical History Past Medical History: Yes Cardiovascular: Hypertension, High cholesterol, Atrial fibrillation Respiratory: None, Tuberculosis Neuro: None Endocrine/Autoimmune: None GI: Other : Other HEENT: None Psych: None Musculoskeletal: None - Past Surgical History Past Surgical History: Yes General: Hiatal hernia repair HEENT: Cataracts - Present Medications Home Medications: Ambulatory Orders Medication Instructions Recorded Confirmed Zolpidem [Ambien] 5 mg PO HS PRN 01/13/23 11/02/23 amLODIPine [Norvasc] 2.5 mg PO DAILY 01/13/23 11/02/23 hydrALAZINE [Apresoline] 25 mg PO TID PRN 01/13/23 11/02/23 Tadalafil [Cialis] 5 mg PO PRN PRN MDD / 11/02/23 11/02/23 Valsartan 80 mg PO DAILY 11/02/23 11/02/23 - Allergies Allergies/Adverse Reactions: Allergies Allergy/AdvReac Type Severity Reaction Status Date / Time No Known Drug Allergies Allergy Verified 11/02/23 13:11 - Social History Does the pt smoke?: No Smoking Status: Never smoker Does the pt drink ETOH?: Yes Does the pt have substance abuse?: No - Immunizations Immunizations are current?: Yes PD ED PE NORMAL - Vitals Vital signs reviewed: Yes - General General: Alert and oriented X 3, No acute distress, Well developed/nourished - Cardiac Cardiac: RRR - Respiratory Respiratory: No respiratory distress, Clear bilaterally - Abdomen Abdomen: Normal bowel sounds, Soft, Non tender, No organomegaly - Back Back: No CVA TTP - Derm Derm: Normal color, Warm and dry, No rash - Extremities Extremities: No edema - Psych Psych: Normal mood, Normal affect Results - Vitals Vitals: Vital Signs - 24 hr 11/02/23 11/02/23 11/02/23 13:12 15:19 16:56 Temperature 36.5 C Heart Rate 80 78 76 Respiratory 14 16 14 Rate Blood Pressure 144/61 H 130/51 L 139/67 H O2 Saturation 98 100 95 Oxygen O2 Source Room air - Rads (name of study) Arterial renal ultrasound Relevant Findings:: Final report received, EMP independent interpretation of test, Other (Renal artery is not well-visualized with the exception of hilum, both kidneys appear to be perfused no hydronephrosis no obstruction visualized findings are indeterminate for stenosis) PD Medical Decision Making - ED course ED course: 78-year-old male presents emergency department for abnormal labs. Patient had labs drawn today his BUN was found to be 92, creatinine 5.2, GFR 72, phosphorus 5.9. Last labs were complete September 06 and his BUN was found to be and 20, creatinine 1.0, GFR 11, phosphorus 3.3. 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 Patient says that he takes his blood pressure daily and adjust his blood pressure medications accordingly. I spoke with his a/c tech Dr. Evans who recommended doing a renal duplex and renal ultrasound for further evaluation of renal artery stenosis and possible hydronephrosis or other possible obstruction and ultrasound did not reveal any of these things, she said if these things came back unremarkable to transfer patient to [place] for further urgent workup for further evaluation of his new renal failure. I informed the patient that he is being advised by his a/c tech to be transferred and patient says at this point in time he is declining to be transferred to [facility]. Patient says that he would like to go home tonight he understands that he is leaving AGAINST MEDICAL ADVICE and he has been informed that this could lead to or disability and has agreed to sign AMA paperwork this was done in the presence of nurse Ackerman patient was able to provide teach back. Patient was informed if he changes his mind and would like to come back to the emergency department he is more than welcome to. At this point in time unclear what is causing his new kidney failure. Strict ER return precautions given all questions answered to AMA paperwork signed. Departure - Departure Disposition: Against Medical Advice Clinical Impression: Renal failure Qualifiers: Renal failure chronicity: acute Condition: Good Instructions: ED Diet Renal, ED Insufficiency Renal Comments: You are leaving AGAINST MEDICAL ADVICE nephrology is recommending you be sibley sferred to [facility] for further workup of the new renal failure. You understand choosing to leave AGAINST MEDICAL ADVICE poses a risk of or disability. If you change your mind and would like to further pursue emergent workup for your acute renal failure please present back to the nearest emergency department. Forms: PCP List Discharge Date/Time: 11/02/23 17:35
[2023-11-02] MEDS: SODIUM CHLORIDE 0.9% 1,000 ML IV STA (15:14)
--- NOTE | 2023-11-02 16:52 | Ultrasound Report ---
PROCEDURE: Bladder INDICATIONS: new renal failure TECHNIQUE: Real-time scanning was performed of the kidneys and bladder, with image documentation. COMPARISON: None FINDINGS: Bladder: Pre-void bladder volume is 226 mL. Post-void residual was not measured as patient was unab le to void.. Pre-void images demonstrate no intraluminal masses or stones. On pre-void images, bila teral ureteral jets are noted with color Doppler interrogation. (Of note, ureteral jets may not be d etectable in up to 25% of cases due to insufficient differences in specific gravity between ureteral and bladder urine). Miscellaneous: No free pelvic fluid. IMPRESSION: Prominent post void residual, as patient was unable to void. Reviewed by: Alannah Mares MD on 11/02/2023 4:50 PM PDT Approved by: Alannah Mares MD on 11/02/2023 4:50 PM PDT Station ID: [id number]
[2023-11-02 17:01] VITALS: BP 139/67; O2SAT 95
--- NOTE | 2023-11-02 17:16 | Ultrasound Report ---
PROCEDURE: Arterial Visceral Complete INDICATIONS: renal stenosis TECHNIQUE: Real time scanning was performed of both kidneys, followed by Color and pulsed Doppler in terrogation of the renal vessels. COMPARISON: Ultrasound 01/25/2023 FINDINGS: Aortic peak systolic velocity: 121 cm/s. Right side: Escalera-scale imaging: Kidney is 14 cm long. No hydronephrosis. No nephrolithiasis. Renal cortex is normal in echogenicity. No suspicious solid renal masses. Renal artery not visualized, with exception of the hilum, which is 51 cm/s. Renal vein: Patent, without thrombus. Peak renal/aortic ratio (RAR): 0.71-0.73. Left side: Escalera-scale imaging: Kidney is 12.9 cm long. No hydronephrosis. No nephrolithiasis. Renal cortex i s normal in echogenicity. No suspicious solid renal masses. Renal artery not visualized, with exception of the hilum, which is 122 cm/s. Renal vein: Patent, without thrombus. Peak renal/aortic ratio (RAR): 0.77-0.75. IMPRESSION: Severely suboptimal evaluation. The renal arteries are not well visualized, with exception of the hil um. The left hilum demonstrates elevated velocities relative to the right, but not significantly grea ter than the aortic peak systolic velocity. Findings are indeterminant for stenosis. Reviewed by: Mik Guerrero MD on 11/02/2023 5:14 PM PDT Approved by: Mik Guerrero MD on 11/02/2023 5:14 PM PDT Station ID: [id number]
== END 2023-11-02 17:35 | disposition left against medical advice (07) ==
LOC: ED 12:55
DX: I10 Essential (primary) hypertension (principal); K21.00 Gastro-esophageal reflux disease with esophagitis, without bleeding; D50.9 Iron deficiency anemia, unspecified; N17.9 Acute kidney failure, unspecified; Z53.29 Procedure and treatment not carried out because of patient's decision for other reasons
CPT/HCPCS: 36415; 80069; 81001; 82570; 83540; 83721; 84156; 84466; 85027; 85045; 87086; 93975; 96360; 99285

== ENCOUNTER 2023-11-09 09:31 | Outpatient (CLI) | payer MEDICARE, OTHER ==
[2023-11-09 10:08] LABS: ALBUMIN 4.1 g/dL (3.2-5.5); CALCIUM 9.5 mg/dL (8.5-10.3); CREATININE 2.7 mg/dL (0.6-1.3); PHOSPHORUS 3.2 mg/dL (2.5-5.0); POTASSIUM 3.1 mmol/L (3.5-4.5)
[2023-11-09 11:49] LABS: BILIRUBIN,URINE NEGATIVE (NEGATIVE); GLUCOSE, URINE (UA) NEGATIVE (NEGATIVE); KETONES,URINE (UA) NEGATIVE (NEGATIVE); LEUKOCYTE ESTERASE, URINE NEGATIVE (NEGATIVE); NITRITE,URINE NEGATIVE (NEGATIVE); OCCULT BLOOD,URINE TRACE-LYSE (NEGATIVE); PROTEIN,URINE NEGATIVE (NEGATIVE); UROBILINOGEN,URINE 0.2 (NORMAL) E.U./dL (NORMAL)
[2023-11-09 11:53] LABS: CLARITY,URINE CLEAR (CLEAR)
[2023-11-09 11:54] LABS: CREATININE,URINE 34.3 mg/dL; PROTEIN/CREATININE RATIO,URINE 0.3 (<=0.2)
[2023-11-09 12:49] LABS: WBC,URINE 0-3 /HPF (0-3)
[2023-11-09 12:50] LABS: BACTERIA,URINE None Seen /HPF (None Seen); RBC,URINE 0-5 /HPF (0-5); SQUAMOUS EPITHELIAL CELL,UR NONE SEEN (<= Few)
== END 2023-11-09 09:32 | disposition home or self-care (01) ==
LOC: LAB 09:31
PROVIDERS: ATTEND Internal Medicine Nephrology
DX: N17.9 Acute kidney failure, unspecified (principal)
CPT/HCPCS: 36415; 80069; 81001; 82570; 84156; 87086

== ENCOUNTER 2023-11-14 15:39 | Outpatient (CLI) | payer MEDICARE, OTHER ==
[2023-11-14 16:10] LABS: ALBUMIN 4.3 g/dL (3.2-5.5)
[2023-11-14 16:16] LABS: CALCIUM 10.3 mg/dL (8.5-10.3); CREATININE 1.8 mg/dL (0.6-1.3); PHOSPHORUS 3.6 mg/dL (2.5-5.0); POTASSIUM 4.3 mmol/L (3.5-4.5)
== END 2023-11-14 15:40 | disposition home or self-care (01) ==
LOC: LAB 15:39
PROVIDERS: ATTEND Nurse Practitioner Family
DX: I70.1 Atherosclerosis of renal artery (principal); E87.6 Hypokalemia; N18.4 Chronic kidney disease, stage 4 (severe)
CPT/HCPCS: 36415; 80069

== ENCOUNTER 2023-11-15 21:28 | Outpatient (CLI) | payer MEDICARE, OTHER ==
--- NOTE | 2023-11-16 10:30 | Ultrasound Report ---
PROCEDURE: Renal (Retroperitoneal) INDICATIONS: RENAL ARTERY STENOSIS TECHNIQUE: Real time scanning was performed of both kidneys, followed by Color and pulsed Doppler in terrogation of the renal vessels. COMPARISON: CT 08/10/2022 FINDINGS: Aortic peak systolic velocity: 146 cm/s. Right side: Escalera-scale imaging: Kidney is 11.6 cm long. No hydronephrosis. No nephrolithiasis. Renal cortex i s normal in echogenicity. No suspicious solid renal masses. Proximal renal artery peak systolic velocity: 63 cm/s. Mid renal artery peak systolic velocity: 90 cm/s. Distal renal artery peak systolic velocity: 155 cm/s. Renal vein: Patent, without thrombus. Peak renal/aortic ratio (RAR): 1.05. Left side: Escalera-scale imaging: Kidney is 11.4 cm long. No hydronephrosis. No nephrolithiasis. Renal cortex i s normal in echogenicity. No suspicious solid renal masses. Proximal renal artery peak systolic velocity: 93 cm/s. Mid-renal artery peak systolic velocity: 101 cm/s. Distal renal artery peak systolic velocity: 58 cm/s. Renal vein: Patent, without thrombus. Peak renal/aortic ratio (RAR): 0.69. IMPRESSION: No hemodynamically significant stenosis. Reviewed by: Mik Guerrero MD on 11/16/2023 10:28 AM PDT Approved by: Mik Guerrero MD on 11/16/2023 10:28 AM PDT Station ID: [id number]
== END 2023-11-15 21:29 | disposition home or self-care (01) ==
LOC: DI 21:28
PROVIDERS: ATTEND Nurse Practitioner Family
DX: I70.1 Atherosclerosis of renal artery (principal); E87.6 Hypokalemia; N18.4 Chronic kidney disease, stage 4 (severe)

== ENCOUNTER 2023-11-21 08:13 | Outpatient (CLI) | payer MEDICARE, OTHER ==
[2023-11-21 08:52] LABS: ALBUMIN 4.4 g/dL (3.2-5.5); CALCIUM 10.3 mg/dL (8.5-10.3); CREATININE 1.7 mg/dL (0.6-1.3); PHOSPHORUS 2.9 mg/dL (2.5-5.0); POTASSIUM 2.8 mmol/L (3.5-4.5)
== END 2023-11-21 08:14 | disposition home or self-care (01) ==
LOC: LAB 08:13
PROVIDERS: ATTEND Nurse Practitioner Acute Care
DX: K21.00 Gastro-esophageal reflux disease with esophagitis, without bleeding (principal); D50.9 Iron deficiency anemia, unspecified; I70.1 Atherosclerosis of renal artery; E87.6 Hypokalemia; N18.4 Chronic kidney disease, stage 4 (severe)
CPT/HCPCS: 36415; 80069; 83540; 83721; 84466; 85027; 85045

== ENCOUNTER 2023-12-12 08:19 | Outpatient (CLI) | payer MEDICARE, OTHER ==
[2023-12-12 08:48] LABS: ALBUMIN 4.3 g/dL (3.2-5.5); ALBUMIN/GLOBULIN RATIO 1.7 (1.0-2.2); ALKALINE PHOSPHATASE 62 IU/L (42-121); ALT ALANINE AMINOTRANSFERASE 13 IU/L (10-60); AST ASPARTATE AMINOTRANSFERASE 17 IU/L (10-42); BILIRUBIN,TOTAL 0.6 mg/dL (0.2-1.0); BUN - BLOOD UREA NITROGEN 24 mg/dL (6-20); CALCIUM 9.3 mg/dL (8.5-10.3); CARBON DIOXIDE - CO2 20 mmol/L (21-32); CHLORIDE 110 mmol/L (101-111); CHOLESTEROL 112 mg/dL; CREATININE 1.4 mg/dL (0.6-1.3); GFR - MDRD 49 (>89); GLUCOSE 119 mg/dL (74-104); HDL CHOLESTEROL 37 mg/dL; LDL CHOLESTEROL,CALCULATED 62 mg/dL; LDL/HDL RATIO 1.7 (<3.6); POTASSIUM 3.7 mmol/L (3.5-4.5); SODIUM 136 mmol/L (135-145); TOTAL PROTEIN 6.9 g/dL (6.4-8.9); TRIGLYCERIDES 65 mg/dL; VLDL CHOLESTEROL 13 mg/dL
[2023-12-12 14:05] LABS: ESTIMATED AVERAGE GLUCOSE 117 mg/dL (70-100); HEMOGLOBIN A1c% 5.7 % (4.27-6.07)
== END 2023-12-12 08:20 | disposition home or self-care (01) ==
LOC: LAB 08:19
PROVIDERS: ATTEND Internal Medicine
DX: N17.9 Acute kidney failure, unspecified (principal); E78.5 Hyperlipidemia, unspecified; R73.01 Impaired fasting glucose
CPT/HCPCS: 36415; 80053; 80061; 83036; 83721

== ENCOUNTER 2024-01-02 08:53 | Outpatient (CLI) | payer MEDICARE, OTHER ==
[2024-01-02 09:57] LABS: ALBUMIN 4.1 g/dL (3.2-5.5); CALCIUM 9.5 mg/dL (8.5-10.3); CREATININE 1.4 mg/dL (0.6-1.3); PHOSPHORUS 2.9 mg/dL (2.5-5.0); POTASSIUM 3.2 mmol/L (3.5-4.5)
== END 2024-01-02 08:54 | disposition home or self-care (01) ==
LOC: LAB 08:53
PROVIDERS: ATTEND Nurse Practitioner Acute Care
DX: K21.00 Gastro-esophageal reflux disease with esophagitis, without bleeding (principal); D50.9 Iron deficiency anemia, unspecified
CPT/HCPCS: 36415; 80069; 81001; 82570; 83540; 83721; 84156; 84466; 85027; 85045; 87086

== ENCOUNTER 2024-02-09 08:43 | Outpatient (CLI) | payer MEDICARE, OTHER ==
[2024-02-09 09:17] LABS: ALBUMIN 4.2 g/dL (3.2-5.5); CALCIUM 9.7 mg/dL (8.5-10.3); CREATININE 1.3 mg/dL (0.6-1.3); PHOSPHORUS 2.9 mg/dL (2.5-5.0); POTASSIUM 3.6 mmol/L (3.5-4.5)
== END 2024-02-09 08:44 | disposition home or self-care (01) ==
LOC: LAB 08:43
PROVIDERS: ATTEND Nurse Practitioner Family
DX: I70.1 Atherosclerosis of renal artery (principal); E87.6 Hypokalemia; N18.4 Chronic kidney disease, stage 4 (severe)
CPT/HCPCS: 36415; 80069